=== PATIENT | male | born 1975 | race Caucasian/White ===

== ENCOUNTER 2020-08-15 12:04 | Emergency (ER) | payer OTHER ==
[2020-08-15] MEDS ORDERED: BABY ASPIRIN 81 MG CHEW PO ONE (12:08)
--- NOTE | 2020-08-15 12:08 | ERPHSYRPT ---
- History of Present Illness Time Seen by Provider: 08/15/20 12:08 Historian: patient, other Exam Limitations: no limitations Physician History: This is a 44-year-old white male who presents with sudden onset of left anterior chest wall pain. It occurred approximately half hour prior to arrival. Patient was brought in by the officer at the nursing home. Patient is a resident at the nursing home. Patient has never had this type of pain in the past. He denies any type of injury. He has no coronary artery disease history. He has had no fevers and no cough. Timing/Duration: today Activities at Onset: none Quality: sharpness, stabbing Location: other (Left anterior chest wall) Chest Pain Radiation: no radiation Severity of Pain-Max: moderate Severity of Pain-Current: moderate Modifying Factors: Improves With: nothing Associated Symptoms: denies symptoms Prior Chest Pain/Cardiac Workup: no prior chest pain Nitro Today/Relief: no nitro taken today Aspirin Treatment Today: 325 mg x 1, provided by EMS Allergies/Adverse Reactions: No Known Drug Allergies Allergy (Unverified 08/15/20 12:09) Travel Risk - International Travel Have you traveled outside of the country in past 3 weeks: No - Coronavirus Screening Are you exhibiting any of the following symptoms?: No Close contact with a COVID-19 positive Pt in past 14-21 Days: No - Review of Systems Constitutional: No Symptoms Eyes: No Symptoms Ears, Nose, & Throat: No Symptoms Respiratory: No Symptoms Cardiac: Chest Pain Abdominal/Gastrointestinal: No Symptoms Genitourinary Symptoms: Incontinence Musculoskeletal: No Symptoms Skin: No Symptoms Neurological: No Symptoms Psychological: No Symptoms Endocrine: No Symptoms Hematologic/Lymphatic: No Symptoms Immunological/Allergic: No Symptoms All Other Systems: Reviewed and Negative - Past Medical History Pertinent Past Medical History: Yes Neurological History: No Pertinent History ENT History: No Pertinent History Cardiac History: No Pertinent History Respiratory History: No Pertinent History Endocrine Medical History: No Pertinent History Musculoskeletal History: No Pertinent History GI Medical History: No Pertinent History History: No Pertinent History Psycho-Social History: No Pertinent History Male Reproductive Disorders: No Pertinent History - Past Surgical History Past Surgical History: Yes - Nursing Vital Signs Nursing Vital Signs: Initial Vital Signs Temperature 97.7 F 08/15/20 12:10 Pulse Rate 107 H 08/15/20 12:10 Respiratory Rate 36 H 08/15/20 12:10 Blood Pressure 115/78 08/15/20 12:10 O2 Sat by Pulse Oximetry 98 08/15/20 12:10 Pain Scale Pain Intensity 7 - Physical Exam General Appearance: mild distress, alert, anxiety Eye Exam: PERRL/EOMI, eyes nml inspection Ears, Nose, Throat Exam: normal ENT inspection, moist mucous membranes Neck Exam: normal inspection, non-tender, supple, full range of motion Respiratory Exam: normal breath sounds, chest tenderness (Left anterior chest wall), lungs clear, airway intact, No respiratory distress Cardiovascular Exam: regular rate/rhythm, normal heart sounds, normal peripheral pulses Gastrointestinal/Abdomen Exam: soft, normal bowel sounds, No tenderness Rectal Exam: not done Back Exam: normal inspection, normal range of motion, No CVA tenderness, No vertebral tenderness Extremity Exam: normal inspection, normal range of motion, pelvis stable Neurologic Exam: alert, oriented x 3, cooperative, parakeet raiser II-XII nml as tested, sensation nml Skin Exam: normal color, warm, dry Lymphatic Exam: No adenopathy SpO2 Interpretation: normal O2 Delivery: Room Air - Course Nursing assessment & vital signs reviewed: Yes EKG Interpreted by Me: RATE ([id number]), Sinus Rhythm, NORMAL AXIS, NORMAL INTERVALS, NORMAL QRS, NORMAL ST-T, Other (No acute ischemic changes. There is no comparison EKG) Ordered Tests: Active Orders 24 hr Category Date Time Status Innersole Fitter STAT Care 08/15/20 12:09 Active EKG-ER Only STAT Care 08/15/20 12:08 Active IV Insertion STAT Care 08/15/20 12:08 Active Pulse Oximetry (ED) STAT Care 08/15/20 12:08 Active CHEST 1 VIEW (PORTABLE) Stat Exams 08/15/20 12:09 Completed CBC W DIFF Stat Lab 08/15/20 12:00 Completed CMP Stat Lab 08/15/20 12:00 Completed CULTURE,URINE Stat Lab 08/15/20 13:15 Ordered D-DIMER QUANTITATIVE Stat Lab 08/15/20 12:00 Completed NT PRO BNP Stat Lab 08/15/20 12:00 Completed PROTIME WITH INR Stat Lab 08/15/20 12:00 Completed TROPONIN Q3H Lab 08/15/20 12:00 Completed TROPONIN Q3H Lab 08/15/20 15:15 Ordered TROPONIN Q3H Lab 08/15/20 18:15 Ordered TROPONIN Q3H Lab 08/15/20 21:15 Ordered TROPONIN Q3H Lab 08/16/20 00:15 Ordered UA W/RFX UR CULTURE Stat Lab 08/15/20 13:16 Ordered Urine Triage Profile Stat Lab 08/15/20 13:16 Ordered Medication Summary Discontinued Medications Generic Name Dose Route Start Last Admin Trade Name Gabeq PRN Reason Stop Dose Admin Acetaminophen 650 mg 08/15/20 13:13 08/15/20 13:18 Tylenol 325 Mg PO 08/15/20 13:14 Not Given STAT STA Acetaminophen Confirm 08/15/20 13:14 Tylenol 325 Mg Administered 08/15/20 13:15 Dose 650 mg .ROUTE .STK-MED ONE Aspirin 324 mg 08/15/20 12:08 08/15/20 12:37 Baby Aspirin 81 Mg Chew PO 08/15/20 12:09 Not Given STAT ONE Lab/Rad Data: Laboratory Result Diagrams 08/15/20 12:00 08/15/20 12:00 Laboratory Results 08/15/20 08/15/20 08/15/20 Range/Units 12:00 12:00 12:00 WBC (4.0-10.5) K/mm3 RBC (4.1-5.6) M/mm3 Hgb (12.5-18.0) gm/dl Hct (42-50) % MCV (78-100) fl MCH (26-32) pg MCHC (32-36) g/dl RDW (11.5-14.0) % Plt Count (150-450) K/mm3 MPV (7.5-11.0) fl Gran % (36.0-66.0) % Eos # (Auto) (0-0.5) Absolute Lymphs (auto) (1.0-4.6) Absolute Monos (auto) (0.0-1.3) Lymphocytes % (24.0-44.0) % Monocytes % (0.0-12.0) % Eosinophils % (0.00-5.0) % Basophils % (0.0-0.4) % Absolute Granulocytes (1.4-6.9) Basophils # (0-0.4) PT 18.6 H (8.83-12.87) SECONDS INR 1.64 (0.8-3.0) D-Dimer < 215 L (215-500) ng/mL Sodium 137 (137-145) mmol/L Potassium 4.1 (3.5-5.1) mmol/L Chloride 102 (98-107) mmol/L Carbon Dioxide 25 (22-30) mmol/L Anion Gap 13.8 (5-15) MEQ/L BUN 17 (9-20) mg/dL Creatinine 1.19 (0.66-1.25) mg/dL Estimated GFR > 60.0 ML/MIN Glucose 100 (74-106) mg/dL Calcium 10.1 (8.4-10.2) mg/dL Total Bilirubin 1.00 (0.2-1.3) mg/dL AST 22 (17-59) U/L ALT 15 (0-50) U/L Alkaline Phosphatase 74 (38-126) U/L Troponin I < 0.012 (0.000-0.034) ng/mL NT-Pro-B Natriuret Pep 32.4 (0-450) pg/mL Serum Total Protein 8.6 H (6.3-8.2) g/dL Albumin 4.8 (3.5-5.0) g/dL 08/15/20 Range/Units 12:00 WBC 8.1 (4.0-10.5) K/mm3 RBC 5.29 (4.1-5.6) M/mm3 Hgb 17.1 (12.5-18.0) gm/dl Hct 51.2 H (42-50) % MCV 96.8 (78-100) fl MCH 32.3 H (26-32) pg MCHC 33.4 (32-36) g/dl RDW 12.3 (11.5-14.0) % Plt Count 295 (150-450) K/mm3 MPV 10.3 (7.5-11.0) fl Gran % 55.0 (36.0-66.0) % Eos # (Auto) 0.19 (0-0.5) Absolute Lymphs (auto) 2.64 (1.0-4.6) Absolute Monos (auto) 0.72 (0.0-1.3) Lymphocytes % 32.8 (24.0-44.0) % Monocytes % 8.9 (0.0-12.0) % Eosinophils % 2.4 (0.00-5.0) % Basophils % 0.9 (0.0-0.4) % Absolute Granulocytes 4.43 (1.4-6.9) Basophils # 0.07 (0-0.4) PT (8.83-12.87) SECONDS INR (0.8-3.0) D-Dimer (215-500) ng/mL Sodium (137-145) mmol/L Potassium (3.5-5.1) mmol/L Chloride (98-107) mmol/L Carbon Dioxide (22-30) mmol/L Anion Gap (5-15) MEQ/L BUN (9-20) mg/dL Creatinine (0.66-1.25) mg/dL Estimated GFR ML/MIN Glucose (74-106) mg/dL Calcium (8.4-10.2) mg/dL Total Bilirubin (0.2-1.3) mg/dL AST (17-59) U/L ALT (0-50) U/L Alkaline Phosphatase (38-126) U/L Troponin I (0.000-0.034) ng/mL NT-Pro-B Natriuret Pep (0-450) pg/mL Serum Total Protein (6.3-8.2) g/dL Albumin (3.5-5.0) g/dL - Progress Progress: re-examined Air Movement: good Progress Note: 08/15/20 12:52 Chest x-ray shows some mild haziness in the right lung base. No other acute cardiopulmonary issues present. Blood Culture(s) Obtained: No Counseled pt/family regarding: lab results, diagnosis, need for follow-up, rad results - Departure Departure Disposition: Residential/Assisted Clinical Impression: Right pulmonary infiltrate on CXR Condition: Stable Critical Care Time: No Additional Instructions: Drink plenty of fluids take medication as prescribed. Follow-up with primary care physician for further management.
[2020-08-15 12:15] LABS: Absolute Neutrophil Ct (ANC) 4.43 (1.4-6.9); BASOPHIL % 0.9 % (0.0-0.4); Basophil (Absolute #) 0.07 (0-0.4); Eosinophil % 2.4 % (0.00-5.0); Eosinophil (Absolute #) 0.19 (0-0.5); Hematocrit 51.2 % (42-50); Hemoglobin 17.1 gm/dl (12.5-18.0); Lymphocyte (Absolute #) 2.64 (1.0-4.6); Lymphocytes % 32.8 % (24.0-44.0); Mean Cell Volume 96.8 fl (78-100); Mean Corpuscular Hemoglobin 32.3 pg (26-32); Mean Corpuscular Hgb Concent. 33.4 g/dl (32-36); Mean Platelet Volume 10.3 fl (7.5-11.0); Monocyte (Absolute #) 0.72 (0.0-1.3); Monocytes % 8.9 % (0.0-12.0); Platelet Count 295 K/mm3 (150-450); Red Blood Count 5.29 M/mm3 (4.1-5.6); Red Cell Distribution Width 12.3 % (11.5-14.0); White Blood Count 8.1 K/mm3 (4.0-10.5)
--- NOTE | 2020-08-15 12:26 | XRAY ---
Indication: Chest pain. Short of breath. Comparison: None Portable chest does not completely include left costophrenic angle. Hazy right infrahilar airspace opacity without consolidation/large effusion. Remaining heart and lungs unremarkable. Bony thorax intact with mild dextroscoliosis centered at T7.
[2020-08-15 12:30] VITALS: BP 115/78
[2020-08-15 12:35] LABS: INR 1.64 (0.8-3.0); PROTIME 18.6 SECONDS (8.83-12.87)
[2020-08-15 12:37] LABS: ALBUMIN 4.8 g/dL (3.5-5.0); ALKALINE PHOSPHATASE 74 U/L (38-126); ANION GAP 13.8 MEQ/L (5-15); BLOOD UREA NITROGEN 17 mg/dL (9-20); CHLORIDE 102 mmol/L (98-107); Calcium 10.1 mg/dL (8.4-10.2); Carbon Dioxide 25 mmol/L (22-30); Creatinine 1 1.19 mg/dL (0.66-1.25); EST GLOMERULAR FILTRATION RATE > 60.0 ML/MIN; Glucose 100 mg/dL (74-106); NT PRO BNP 32.4 pg/mL (0-450); Potassium 4.1 mmol/L (3.5-5.1); SGOT/AST 22 U/L (17-59); SGPT/ALT 15 U/L (0-50); SODIUM 137 mmol/L (137-145); Total Protein 8.6 g/dL (6.3-8.2)
[2020-08-15 12:45] LABS: D-DIMER QUANTITATIVE < 215 ng/mL (215-500)
[2020-08-15 13:13] VITALS: PULSE 99; O2SAT 99
[2020-08-15] MEDS ORDERED: TYLENOL 325 MG ONE (13:14)
[2020-08-15] MEDS: TYLENOL 325 MG PO STA ×2 (13:15→13:18)
[2020-08-15] MEDS ORDERED: ROCEPHIN 1 Gm-D5w 50 ml Bag** 1 G/50 ML IVPB IV STA (13:16)
[2020-08-15] MEDS ORDERED: ROCEPHIN 1 Gm-D5w 50 ml Bag** 1 G/50 ML IVPB IV ONE (13:23)
[2020-08-15 13:53] LABS: Appearance CLEAR (CLEAR); Bilirubin NEGATIVE (NEGATIVE); Blood NEGATIVE Ery/ul (0-5); Glucose NEGATIVE (NEGATIVE); Ketones SMALL (NEGATIVE); Leukocyte Esterase NEGATIVE (NEGATIVE); Mucus SLIGHT /HPF (NEGATIVE); Nitrite NEGATIVE (NEGATIVE); Protein,Urine Dip 30 (Negative); Specific Gravity 1.018 (1.005-1.025); Urobilinogen 4 mg/dL (0-1)
[2020-08-15 13:57] LABS: Bacteria NONE SEEN /HPF (NEGATIVE)
[2020-08-15 14:19] LABS: Barbiturate,Urine NEGATIVE (NEGATIVE); Benzodiazepine,Urine NEGATIVE (NEGATIVE); Cocaine,Urine NEGATIVE (NEGATIVE); Methadone,Urine NEGATIVE (NEGATIVE); Opiate,Urine NEGATIVE (NEGATIVE); PCP,Urine NEGATIVE (NEGATIVE); THC,Urine POSITIVE (NEGATIVE)
[2020-08-15 14:48] LABS: Amphetamine,Urine POSITIVE (NEGATIVE)
== END 2020-08-15 13:40 | disposition home or self-care (01) ==
LOC: ED 12:04
DX: R91.8 Other nonspecific abnormal finding of lung field (principal); R07.89 Other chest pain
CPT/HCPCS: 36415; 71045; 80053; 80307; 81001; 83880; 84484; 85025; 85379; 85610; 87086; 93005; 93041; 94760; 96374; 99284; J0696; A9270-GY

== ENCOUNTER 2022-08-07 16:42 | Emergency (ER) | payer OTHER ==
[2022-08-07 16:54] VITALS: BP 90/47; PULSE 77; O2SAT 96
[2022-08-07] MEDS ORDERED: SUBLIMAZE 100 MCG/2 ML IV ONE (16:56)
[2022-08-07] MEDS ORDERED: Zofran 4 MG/2 ML VIAL IV ONE (16:56)
[2022-08-07] MEDS ORDERED: Sodium Chloride 0.9% 1000 ML 1,000 ML IV STA (16:56)
[2022-08-07] MEDS ORDERED: Sodium Chloride 0.9% 1000 ML 1,000 ML ONE (16:57)
[2022-08-07] MEDS ORDERED: Zofran 4 MG/2 ML VIAL ONE (17:05)
[2022-08-07] MEDS ORDERED: SUBLIMAZE 100 MCG/2 ML ONE (17:06)
[2022-08-07 17:07] LABS: Absolute Neutrophil Ct (ANC) 2.78 x10^3/uL (1.4-6.9); Basophil (Absolute #) 0.04 x10^3/uL (0-0.4); Eosinophil % 1.1 % (0.00-5.0); Eosinophil (Absolute #) 0.04 x10^3/uL (0-0.5); Hematocrit 41.1 % (42-50); Hemoglobin 13.6 g/dL (12.5-18.0); Lymphocyte (Absolute #) 0.26 x10^3/uL (1.0-4.6); Lymphocytes % 7.2 % (24.0-44.0); Mean Cell Volume 96.9 fL (78-100); Mean Corpuscular Hemoglobin 32.1 pg (26-32); Mean Corpuscular Hgb Concent. 33.1 g/dL (32-36); Mean Platelet Volume 9.8 fL (7.5-11.0); Monocyte (Absolute #) 0.47 x10^3/uL (0.0-1.3); Platelet Count 176 x10^3/uL (150-450); Red Blood Count 4.24 x10^6/uL (4.1-5.6); Red Cell Distribution Width 12.2 % (11.5-14.0); White Blood Count 3.6 x10^3/uL (4.0-10.5)
[2022-08-07 17:17] LABS: ALBUMIN 4.5 g/dL (3.5-5.0); ALKALINE PHOSPHATASE 63 U/L (38-126); ANION GAP 10.1 MEQ/L (5-15); BLOOD UREA NITROGEN 10 mg/dL (9-20); CHLORIDE 101 mmol/L (98-107); Calcium 9.4 mg/dL (8.4-10.2); Carbon Dioxide 27 mmol/L (22-30); Creatinine 1 1.09 mg/dL (0.66-1.25); EST GLOMERULAR FILTRATION RATE > 60.0 ML/MIN; Glucose 115 mg/dL (74-106); LIPASE 61 U/L (23-300); Potassium 3.8 mmol/L (3.5-5.1); SGOT/AST 26 U/L (17-59); SGPT/ALT 21 U/L (0-50); SODIUM 135 mmol/L (137-145); Total Protein 7.3 g/dL (6.3-8.2)
--- NOTE | 2022-08-07 18:35 | ERPHSYRPT ---
- History of Present Illness Time Seen by Provider: 08/07/22 16:50 Historian: patient Exam Limitations: no limitations Patient Subjective Stated Complaint: pt here for abd pain, low grade fever today that started at about 0200 this morning, no bm for 5 days, has been taking immodium, he aslo co headache and chest tightness, Triage Nursing Assessment: pt alert, walked in, resp easy, face mask in place, pt restless, holding head times, abd soft ,tender to touch, no edema noted Physician History: 46-year-old male presented in the ER with chief complaint of severe abdominal pain. Patient reports having abdominal pain since yesterday off and on and got worse today. He has no bowel movement in 5 days and took some Imodium thinking it was a laxative. Since then his pain is getting worse, severe sharp more in the left lower quadrant with cramping, no associated nausea or vomiting. Patient also complaining having low-grade fever with chills and some headache. Although patient is afebrile on presentation. Timing/Duration: yesterday, gradual onset, worse Activities at Onset: rest Quality: sharpness Abdominal Pain Onset Location: LLQ, periumbilical Severity of Pain-Max: severe Severity of Pain-Current: severe Modifying Factors: Improves With: nothing Associated Symptoms: back, fever/chills, headache, No chest pain, No heartburn, No loss of appetite, No neck pain, No shortness of breath, No syncope, No te sticular pain, No vomiting, No weakness Previous symptoms: no prior history Allergies/Adverse Reactions: No Known Drug Allergies Allergy (Verified 08/07/22 16:48) Home Medications: No Reportable Medications [No Reported Medications] 08/07/22 [History] Hx Tetanus, Diphtheria Vaccination/Date Given: Yes Hx Influenza Vaccination/Date Given: No Hx Pneumococcal Vaccination/Date Given: No Immunizations Up to Date: Yes Travel Risk - International Travel Have you traveled outside of the country in past 3 weeks: No - Coronavirus Screening Are you exhibiting any of the following symptoms?: No Close contact with a COVID-19 positive Pt in past 14-21 Days: No - Vaccine Status Have you recieved a Covid-19 vaccination: No - Review of Systems Constitutional: Fever Eyes: No Symptoms Ears, Nose, & Throat: No Symptoms Respiratory: No Symptoms Cardiac: No Symptoms Abdominal/Gastrointestinal: Abdominal Pain, Constipation Genitourinary Symptoms: No Symptoms Musculoskeletal: No Symptoms Skin: No Symptoms Neurological: No Symptoms, Headache Psychological: No Symptoms Endocrine: No Symptoms Hematologic/Lymphatic: No Symptoms Immunological/Allergic: No Symptoms - Past Medical History Pertinent Past Medical History: No Neurological History: No Pertinent History ENT History: No Pertinent History Cardiac History: No Pertinent History Respiratory History: No Pertinent History Endocrine Medical History: No Pertinent History Musculoskeletal History: No Pertinent History GI Medical History: No Pertinent History History: No Pertinent History Psycho-Social History: No Pertinent History Male Reproductive Disorders: No Pertinent History - Past Surgical History Past Surgical History: Yes Neuro Surgical History: No Pertinent History Cardiac: No Pertinent History Respiratory: No Pertinent History Gastrointestinal: Appendectomy Genitourinary: No Pertinent History Musculoskeletal: No Pertinent History Male Surgical History: No Pertinent History - Social History Smoking Status: Current every day smoker How long have you smoked: years Exposure to second hand smoke: No Drug Use: none Patient Lives Alone: No ([facility]) - Nursing Vital Signs Nursing Vital Signs: Initial Vital Signs Temperature 97.4 F 08/07/22 16:49 Pulse Rate 77 08/07/22 16:49 Respiratory Rate 18 08/07/22 16:49 Blood Pressure 90/47 08/07/22 16:49 O2 Sat by Pulse Oximetry 96 08/07/22 16:49 Pain Scale Pain Intensity 8 - Physical Exam General Appearance: no apparent distress, alert Eye Exam: PERRL/EOMI Ears, Nose, Throat Exam: normal ENT inspection, TMs normal, pharynx normal Neck Exam: normal inspection, non-tender, supple, full range of motion Respiratory Exam: normal breath sounds, lungs clear Cardiovascular Exam: regular rate/rhythm, normal heart sounds Gastrointestinal/Abdomen Exam: soft, normal bowel sounds, tenderness Back Exam: normal inspection, normal range of motion, No CVA tenderness (Left lower quadrant) Extremity Exam: normal inspection, normal range of motion Neurologic Exam: alert, oriented x 3, cooperative Skin Exam: normal color SpO2 Interpretation: normal SpO2: 96 O2 Delivery: Room Air - Course Nursing assessment & vital signs reviewed: (Message she asked) EKG Interpreted by Me: RATE ([id number]), Sinus Tach, NORMAL AXIS, NORMAL INTERVALS, Q- wave, Non-specific ST Changes Ordered Tests: Active Orders 24 hr Category Date Time Status EKG-ER Only STAT Care 08/07/22 16:56 Completed IV Insertion STAT Care 08/07/22 16:56 Completed NPO (ED) STAT Care 08/07/22 16:56 Completed ABDOMEN AND PELVIS W CONTRAST [CT] Stat Exams 08/07/22 16:51 Taken CBC W DIFF Stat Lab 08/07/22 17:05 Completed CMP Stat Lab 08/07/22 17:05 Completed LIPASE Stat Lab 08/07/22 17:05 Completed Lactic Acid Stat Lab 08/07/22 17:30 Completed TROPONIN Q4H Lab 08/07/22 17:05 Completed TROPONIN Q4H Lab 08/07/22 21:00 Ordered UA W/RFX UR CULTURE Stat Lab 08/07/22 18:26 Completed Medication Summary Discontinued Medications Generic Name Dose Route Start Last Admin Trade Name Tiana PRN Reason Stop Dose Admin Fentanyl Citrate 50 mcg 08/07/22 16:56 08/07/22 17:09 Fentanyl Citrate 100 Mcg/2 Ml* Vial IV 08/07/22 16:57 50 mcg STAT ONE Administration Fentanyl Citrate Confirm 08/07/22 17:06 Fentanyl Citrate 100 Mcg/2 Ml* Vial Administered 08/07/22 17:07 Dose 100 mcg .ROUTE .STK-MED ONE Sodium Chloride Confirm 08/07/22 16:57 Sodium Chloride 0.9% 1000 Ml Administered 08/07/22 16:58 Dose 1,000 mls @ ud .ROUTE .STK-MED ONE Sodium Chloride 1,000 mls @ 999 mls/hr 08/07/22 16:56 08/07/22 17:07 Sodium Chloride 0.9% 1000 Ml IV 08/07/22 17:56 999 mls/hr .Q1H1M STA Administration Ketorolac Tromethamine 30 mg 08/07/22 18:37 08/07/22 18:41 Ketorolac Tromethamine 30 Mg/Ml Inj IM 08/07/22 18:38 30 mg STAT ONE Administration Ketorolac Tromethamine Confirm 08/07/22 18:39 Ketorolac Tromethamine 30 Mg/Ml Inj Administered 08/07/22 18:40 Dose 30 mg .ROUTE .STK-MED ONE Ondansetron HCl 4 mg 08/07/22 16:56 08/07/22 17:08 Ondansetron Hcl 4 Mg/2 Ml Vial IV 08/07/22 16:57 4 mg STAT ONE Administration Ondansetron HCl Confirm 08/07/22 17:05 Ondansetron Hcl 4 Mg/2 Ml Vial Administered 08/07/22 17:06 Dose 4 mg .ROUTE .STK-MED ONE Lab/Rad Data: Laboratory Result Diagrams 08/07/22 17:05 08/07/22 17:05 Laboratory Results 08/07/22 08/07/22 08/07/22 Range/Units 18:26 17:30 17:05 WBC (4.0-10.5) x10^3/uL RBC (4.1-5.6) x10^6/uL Hgb (12.5-18.0) g/dL Hct (42-50) % MCV (78-100) fL MCH (26-32) pg MCHC (32-36) g/dL RDW (11.5-14.0) % Plt Count (150-450) x10^3/uL MPV (7.5-11.0) fL Gran % (36.0-66.0) % Immature Gran % (Auto) (0.00-0.4) % Nucleat RBC Rel Count (0.00-0.1) % Eos # (Auto) (0-0.5) x10^3/uL Immature Gran # (Auto) (0.00-0.03) x10^3u/L Absolute Lymphs (auto) (1.0-4.6) x10^3/uL Absolute Monos (auto) (0.0-1.3) x10^3/uL Absolute Nucleated RBC (0.00-0.01) x10^3u/L Lymphocytes % (24.0-44.0) % Monocytes % (0.0-12.0) % Eosinophils % (0.00-5.0) % Basophils % (0.0-0.4) % Absolute Granulocytes (1.4-6.9) x10^3/uL Basophils # (0-0.4) x10^3/uL Sodium (137-145) mmol/L Potassium (3.5-5.1) mmol/L Chloride (98-107) mmol/L Carbon Dioxide (22-30) mmol/L Anion Gap (5-15) MEQ/L BUN (9-20) mg/dL Creatinine (0.66-1.25) mg/dL Estimated GFR ML/MIN Glucose (74-106) mg/dL Lactic Acid 1.4 (0.4-2.0) Calcium (8.4-10.2) mg/dL Total Bilirubin (0.2-1.3) mg/dL AST (17-59) U/L ALT (0-50) U/L Alkaline Phosphatase (38-126) U/L Troponin I < 0.012 (0.000-0.034) ng/mL Serum Total Protein (6.3-8.2) g/dL Albumin (3.5-5.0) g/dL Lipase (23-300) U/L Urine Color Yellow (Yellow) Urine Appearance Clear (Clear) Urine pH 6.5 (4.6-8.0) Ur Specific [place] >=1.030 A (1.005-1.030) Urine Protein 30 (Negative) Urine Ketones Trace A (Negative) Urine Blood Negative (Negative) Urine Nitrite Negative (Negative) Urine Bilirubin Negative (Negative) Urine Urobilinogen 1.0 A (0.2) mg/dL Ur Leukocyte Esterase Negative (Negative) U Hyaline Cast (Auto) 0-2 (0-2) /LPF Urine Microscopic RBC 0-2 (0-5) /HPF Urine Microscopic WBC 0-2 (0-5) /HPF Ur Epithelial Cells None Seen (None Seen) /HPF Urine Bacteria None Seen (None Seen) /HPF Urine Culture Reflexed NO (NO) Urine Glucose Negative (Negative) mg/dL 08/07/22 08/07/22 Range/Units 17:05 17:05 WBC 3.6 L (4.0-10.5) x10^3/uL RBC 4.24 (4.1-5.6) x10^6/uL Hgb 13.6 (12.5-18.0) g/dL Hct 41.1 L (42-50) % MCV 96.9 (78-100) fL MCH 32.1 H (26-32) pg MCHC 33.1 (32-36) g/dL RDW 12.2 (11.5-14.0) % Plt Count 176 (150-450) x10^3/uL MPV 9.8 (7.5-11.0) fL Gran % 77.0 H (36.0-66.0) % Immature Gran % (Auto) 0.6 H (0.00-0.4) % Nucleat RBC Rel Count 0.0 (0.00-0.1) % Eos # (Auto) 0.04 (0-0.5) x10^3/uL Immature Gran # (Auto) 0.02 (0.00-0.03) x10^3u/L Absolute Lymphs (auto) 0.26 L (1.0-4.6) x10^3/uL Absolute Monos (auto) 0.47 (0.0-1.3) x10^3/uL Absolute Nucleated RBC 0.00 (0.00-0.01) x10^3u/L Lymphocytes % 7.2 L (24.0-44.0) % Monocytes % 13.0 H (0.0-12.0) % Eosinophils % 1.1 (0.00-5.0) % Basophils % 1.1 (0.0-0.4) % Absolute Granulocytes 2.78 (1.4-6.9) x10^3/uL Basophils # 0.04 (0-0.4) x10^3/uL Sodium 135 L (137-145) mmol/L Potassium 3.8 (3.5-5.1) mmol/L Chloride 101 (98-107) mmol/L Carbon Dioxide 27 (22-30) mmol/L Anion Gap 10.1 (5-15) MEQ/L BUN 10 (9-20) mg/dL Creatinine 1.09 (0.66-1.25) mg/dL Estimated GFR > 60.0 ML/MIN Glucose 115 H (74-106) mg/dL Lactic Acid (0.4-2.0) Calcium 9.4 (8.4-10.2) mg/dL Total Bilirubin 0.30 (0.2-1.3) mg/dL AST 26 (17-59) U/L ALT 21 (0-50) U/L Alkaline Phosphatase 63 (38-126) U/L Troponin I (0.000-0.034) ng/mL Serum Total Protein 7.3 (6.3-8.2) g/dL Albumin 4.5 (3.5-5.0) g/dL Lipase 61 (23-300) U/L Urine Color (Yellow) Urine Appearance (Clear) Urine pH (4.6-8.0) Ur Specific [place] (1.005-1.030) Urine Protein (Negative) Urine Ketones (Negative) Urine Blood (Negative) Urine Nitrite (Negative) Urine Bilirubin (Negative) Urine Urobilinogen (0.2) mg/dL Ur Leukocyte Esterase (Negative) U Hyaline Cast (Auto) (0-2) /LPF Urine Microscopic RBC (0-5) /HPF Urine Microscopic WBC (0-5) /HPF Ur Epithelial Cells (None Seen) /HPF Urine Bacteria (None Seen) /HPF Urine Culture Reflexed (NO) Urine Glucose (Negative) mg/dL - Progress Progress: improved, re-examined Progress Note: 08/07/22 18:39 46-year-old is evaluated for abdominal pain severe cramping especially in the left lower quadrant with not having any bowel movement for 5 days and took Imodium earlier today thinking it was a laxative. Since then pain is getting worse. Patient is in severe pain on presentation with blood pressure in 80s which improved without any intervention to 113 systolic. He is also complaining of some subjective feeling of fever chills and headache. He is given fluid bolus and fentanyl, on reevaluation his pain is better but not completely resolved. Abdominal exam is soft with no guarding but tenderness in the left lower quadrant. Patient is passing gas. Has a white count of 3.6, grossly unremarkable chemistries. CT abdomen pelvis with contrast is negative for any acute intra-abdominal/pelvic findings. He does have moderate stool load. Normal aorta, no obstruction/perforation. Good bowel sounds. Recommended taking MiraLAX and stool softener. Patient is given Toradol for symptomatic relief of headache. He is offered COVID-19 testing as with his low white count, headache and subjective feeling of fever and chills it is quite possible he has it but patient says "books say that definition of COVID is common cold and I do not want it to be checked". Patient has a pending urinalysis and after recei ving Toradol shot patient walked out without informing anyone. Counseled pt/family regarding: lab results, diagnosis, need for follow-up, rad results - Departure Departure Disposition: [facility] ([facility]) Clinical Impression: Lower abdominal pain Condition: Stable Critical Care Time: No
[2022-08-07 18:37] LABS: Appearance Clear (Clear); Bacteria None Seen /HPF (None Seen); Bilirubin Negative (Negative); Blood Negative (Negative); Epithelial Cells None Seen /HPF (None Seen); Glucose Negative (Negative); Hyaline Casts 0-2 /LPF (0-2); Ketones Trace (Negative); Leukocyte Esterase Negative (Negative); Nitrite Negative (Negative); Ph 6.5 (4.6-8.0); Protein,Urine Dip 30 (Negative); RBC 0-2 /HPF (0-5); Specific Gravity >=1.030 (1.005-1.030); WBC 0-2 /HPF (0-5)
[2022-08-07] MEDS ORDERED: TORAdol 30 mg Injection IM ONE (18:37)
[2022-08-07] MEDS ORDERED: TORAdol 30 mg Injection ONE (18:39)
[2022-08-07 18:42] LABS: ADD URINE CULTURE? NO (NO)
--- NOTE | 2022-08-07 20:38 | XRAY ---
Indication: Abdomen pain and constipation. Multiple contiguous axial images obtained through the abdomen and pelvis using 80 cc Isovue 370 contrast. Comparison: None Lung bases demonstrates mild dependent atelectasis and tiny left costophrenic angle calcified granuloma. Heart not enlarged. Noncontrasted stomach and bowel loops appear nonobstructed. Appendectomy reported. Mild diffuse scattered colonic fecal debris greatest in the right hemicolon. No free fluid/air. Splenic calcified granulomas. Remaining liver, gallbladder, pancreas, spleen, adrenal glands, kidneys, ureters, bladder, and aorta are unremarkable. No pathologic retroperitoneal lymphadenopathy. Osseous structures intact. Impression: 1. 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 2. Remaining CT abdomen/pelvis with contrast exam is negative. Comment: Preliminary interpretation made by [facility]. No critical discrepancy.
== END 2022-08-07 18:48 | disposition left against medical advice (07) ==
LOC: ED 16:42
DX: R10.32 Left lower quadrant pain (principal); R50.9 Fever, unspecified; R51.9 Headache, unspecified; Z28.310 Unvaccinated for COVID-19; Z72.0 Tobacco use
CPT/HCPCS: 36000; 36415; 74177; 80053; 81001; 83605; 83690; 84484; 85025; 93005; 96372; 96374; 96375; 99284; J1885; J2405; J3010

== ENCOUNTER 2025-06-17 15:30 | Emergency (ER) | payer OTHER ==
[2025-06-17] MEDS ORDERED: Ativan 1 MG PO ONE (15:46)
[2025-06-17 15:50] VITALS: BP 135/87; RESP 16; TEMP 96.2; O2SAT 99
--- NOTE | 2025-06-17 15:50 | ERPHSYRPT ---
- History of Present Illness Time Seen by Provider: 06/17/25 15:37 Source: patient, police Exam Limitations: no limitations Physician History: 49-year-old male presents to the emergency room with anxiety patient reports he was being chased by the police patient is currently in police custody he he is here for medical evaluation for clearance for shelter patient states he has a heart condition he has got history of bipolar disorder and is on chronic medications denies any shortness of breath patient reports he is feels like the police are going to kill him denies any homicidal thoughts patient is now in ED for further eval Timing/Duration: today Severity of Symptoms-Max: none Severity of Symptoms-Current: none Associated Symptoms: anxiety Previous symptoms: same symptoms as today, recently seen Allergies/Adverse Reactions: No Known Drug Allergies Allergy (Verified 08/07/22 16:48) Home Medications: No Reportable Medications [No Reported Medications] 08/07/22 [History] Hx Tetanus, Diphtheria Vaccination/Date Given: Yes Hx Influenza Vaccination/Date Given: No Hx Pneumococcal Vaccination/Date Given: No - Past Medical History Pertinent Past Medical History: No Neurological History: No Pertinent History ENT History: No Pertinent History Cardiac History: No Pertinent History Respiratory History: No Pertinent History Endocrine Medical History: No Pertinent History Musculoskeletal History: No Pertinent History GI Medical History: No Pertinent History History: No Pertinent History Psycho-Social History: No Pertinent History Male Reproductive Disorders: No Pertinent History - Past Surgical History Past Surgical History: Yes Neuro Surgical History: No Pertinent History Cardiac: No Pertinent History Respiratory: No Pertinent History Gastrointestinal: Appendectomy Genitourinary: No Pertinent History Musculoskeletal: No Pertinent History Male Surgical History: No Pertinent History - Social History Smoking Status: Current every day smoker How long have you smoked: years Exposure to second hand smoke: No Drug Use: none Patient Lives Alone: No (LONG-TERM) - Review of Systems Constitutional: No Fever, No Chills Eyes: No Symptoms Ears, Nose, & Throat: No Symptoms Respiratory: No Cough, No Dyspnea Cardiac: Chest Pain, No Edema, No Syncope Abdominal/Gastrointestinal: No Abdominal Pain, No Nausea, No Vomiting, No Diarrhea Genitourinary Symptoms: No Dysuria Musculoskeletal: No Back Pain, No Neck Pain Skin: No Rash Neurological: No Dizziness, No Focal Weakness, No Sensory Changes Psychological: Anxiety Endocrine: No Symptoms All Other Systems: Reviewed and Negative - Physical Exam General Appearance: no apparent distress Eyes, Ears, Nose, Throat Exam: normal ENT inspection, moist mucous membranes Neck Exam: normal inspection, non-tender, supple Respiratory Exam: normal breath sounds, lungs clear, No respiratory distress Cardiovascular Exam: regular rate/rhythm, No edema Gastrointestinal/Abdominal Exam: soft, No tenderness, No distention Extremities Exam: normal inspection, normal range of motion, No evidence of inju ry, No edema Current Suicidality: denies suicide plan Neurological Exam: alert, rehab director occupational therapist II-XII nml as tested, oriented x 3 Behavior/Eye Contact/Speech: increased rate of speech (anxious appearing) Thoughts/Hallucinations: flight of ideas, paranoid Skin Exam: normal color, warm, dry, No rash - Course EKG Interpreted by Me: RATE, Sinus Tach (110), Non-specific ST Changes, Other (No STEMI) Ordered Tests: Active Orders 24 hr Category Date Time Status EKG-ER Only STAT Care 06/17/25 15:37 Active - Progress Progress Note: 06/17/25 15:48 Patient with medically cleared will be discharged to police custody EKG is within normal limits patient was offered Ativan - Departure Departure Disposition: Nursing Home/[facility] Clinical Impression: Anxiety Chest pain Qualifiers: Chest pain type: unspecified Qualified Code(s): R07.9 - Chest pain, unspecified Condition: Stable Critical Care Time: No Referrals: DOCTOR,NO FAMILY [Primary Care Provider, UNKNOWN] - Follow up/PCP as directed FRANCIS BOYKIN MD [ACTIVE STAFF, FAMILY PRACTICE] - Follow up/PCP as directed Instructions: Chest Pain (DC), Panic attack - ED discharge instructions, Anxiety in adults - ED discharge instructions
[2025-06-17 15:53] VITALS: PULSE 95
== END 2025-06-17 16:00 ==
LOC: ED 15:30
DX: F41.9 Anxiety disorder, unspecified (principal); R07.9 Chest pain, unspecified; Z72.0 Tobacco use